=== PATIENT | male | born 1950 | race Caucasian/White ===

== ENCOUNTER 2017-04-17 12:10 | Emergency (ER) | payer OTHER ==
[~2017-04-17] VITALS: Ht 182.9 cm; Wt 96.1 kg
[~2017-04-17 12:10] MED LIST: LPR25 PO; WARF5TAB90 PO
[2017-04-17 12:22] VITALS: TEMP 36.8; Ht 182.9 cm; Wt 96.1 kg
--- NOTE | 2017-04-17 12:51 | EMERGENCY ROOM VISIT NOTE ---
History Report prepared by Jayde: Faustino Frank Under the Supervision of: Dr. Dwight Kaufman M.D. First contact with patient: 12:28 Chief Complaint: CARDIAC ASSESSMENT Stated Complaint: POSSIBLE AFIB History of Present Illness The patient is a 66 year old male who presents to the Emergency Room with complaints of intermittent atrial fibrillation beginning yesterday morning. The patient states he has a history of A-fib 4.5 years ago. He reports he was hospitalized, it resolved, and he has not had any signs of it since. The patient notes yesterday morning he had similar symptoms. He states he was outside hiking and doing yard work without symptoms. The patient reports his symptoms are present mainly when he sits down and is resting. He notes he can feel his heart skipping beats. The patient states he was evaluated by his PCP today and was sent here. He reports his EKG was normal. The patient notes he is not on blood thinners, but he does take aspirin. He denies chest pain, shortness of breath, lightheadedness, dizziness, abdominal pain, blood in his stool, black stool, trauma, leg pain, leg swelling, numbness, and weakness. The patient also denies any other chronic illness, including thyroid problems. Source of History: patient, spouse/significant other Onset: yesterday Position: other (global) Quality: other (a-fib) Timing: intermittent Modifying Factors (Worsening): rest Associated Symptoms: No chest pain, No SOB, No abdominal pain, No weakness, No numbness Note: Associated symptoms: feel his heart skipping Denies: lightheadedness, dizziness, blood in stool, black stool, trauma, leg pain, leg swelling Review of Systems See HPI for pertinent positives & negatives. A total of 10 systems reviewed and were otherwise negative. Past Medical & Surgical Medical Problems: (1) Cervical Laminectomy (2) Colonoscopy (3) Rigth Shoulder Arthroscopy (4) Tonsillectomy and adenoidectomy Old medical records were reviewed. Nurse's notes were reviewed and I agree with. Family History FH: heart disease Hypertension Stroke Social History Smoking Status: Former Smoker Marital Status: Current/Historical Medications Scheduled Aspirin (Aspirin Ec), 81 MG PO DAILY Multivitamin (Multivitamin), 1 TAB PO DAILY Miscellaneous Medications Fish Oil ([place]-3), 1 CAP PO Allergies Coded Allergies: Opioid Analgesics (Verified Adverse Reaction, Unknown, H/A, 04/17/17) Physical Exam Vital Signs Date Time Temp Pulse Resp B/P (MAP) Pulse Ox O2 Delivery O2 Flow Rate FiO2 04/17/17 14:01 119/90 04/17/17 13:36 57 17 95 04/17/17 13:31 115/78 04/17/17 13:15 52 13 95 04/17/17 13:15 95 Room Air 04/17/17 13:10 56 10 95 04/17/17 13:01 122/86 04/17/17 12:59 61 04/17/17 12:42 120/81 04/17/17 12:22 36.8 61 18 129/81 98 Room Air Physical Exam General: Non-ill appearing older male in no acute distress. HEENT: Normal cephalic atraumatic. Pupils are equal round and reactive to light. Extraocular movements are intact. Oropharynx is pink with moist mucous membranes. No swelling of the mouth lips or tongue. Neck: Supple with a midline trachea. No meningeal signs or stiffness, no JVD or bruits. No Stridor. Chest: Clear to auscultation bilaterally. No wheezes or rhonchi. No increased work of breathing. Heart: regular rate and rhythm. Abdomen: Soft nontender, nondistended without rebound guarding or rigidity. Extremities: No cyanosis clubbing or edema. No calf tenderness or assymetry Spine/Back. Non tender to palpation. No CVA tenderness Skin: Good turgor without rashes. Neurologic exam: Cranial nerves two through 12 are intact. Motor and sensation are intact and symmetrical throughout. Medical Decision & Procedures ER Provider Diagnostic Interpretation: X-ray results as stated below per interpretation by me and the radiologist: CHEST ONE VIEW PORTABLE CLINICAL HISTORY: CHEST PAIN dyspnea COMPARISON STUDY: 10/16/2012 FINDINGS: The bones soft tissues and hemidiaphragms are normal. The cardiomediastinal silhouette is normal. The lungs are clear. The pulmonary vasculature is normal. IMPRESSION: Negative chest. The above report was generated using voice recognition software. It may contain grammatical, syntax or spelling errors. Electronically signed by: Campos Card M.D. 04/17/2017 1:00 PM Dictated Date/Time: 04/17/2017 12:59 PM Laboratory Results 04/17/17 13:00 Red Blood Count 5.09, Mean Corpuscular Volume 84.9, Mean Corpuscular Hemoglobin 28.3, Mean Corpuscular Hemoglobin Concent 33.3, Mean Platelet Volume 10.5, Neutrophils (%) (Auto) 59.5, Lymphocytes (%) (Auto) 29.0, Monocytes (%) (Auto) 8.3, Eosinophils (%) (Auto) 2.6, Basophils (%) (Auto) 0.6, Neutrophils # (Auto) 3.00, Lymphocytes # (Auto) 1.46, Monocytes # (Auto) 0.42, Eosinophils # (Auto) 0.13, Basophils # (Auto) 0.03 04/17/17 13:00 Test 04/17/17 13:00 04/17/17 13:15 White Blood Count 5.04 K/uL (4.8-10.8) Red Blood Count 5.09 M/uL (4.7-6.1) Hemoglobin 14.4 g/dL (14.0-18.0) Hematocrit 43.2 % (42-52) Mean Corpuscular Volume 84.9 fL (80-100) Mean Corpuscular Hemoglobin 28.3 pg (25-34) Mean Corpuscular Hemoglobin Concent 33.3 g/dl (32-36) Platelet Count 223 K/uL (130-400) Mean Platelet Volume 10.5 fL (7.4-10.4) Neutrophils (%) (Auto) 59.5 % Lymphocytes (%) (Auto) 29.0 % Monocytes (%) (Auto) 8.3 % Eosinophils (%) (Auto) 2.6 % Basophils (%) (Auto) 0.6 % Neutrophils # (Auto) 3.00 K/uL (1.4-6.5) Lymphocytes # (Auto) 1.46 K/uL (1.2-3.4) Monocytes # (Auto) 0.42 K/uL (0.11-0.59) Eosinophils # (Auto) 0.13 K/uL (0-0.5) Basophils # (Auto) 0.03 K/uL (0-0.2) RDW Standard Deviation 39.7 fL (36.4-46.3) RDW Coefficient of Variation 12.8 % (11.5-14.5) Immature Granulocyte % (Auto) 0.0 % Immature Granulocyte # (Auto) 0.00 K/uL (0.00-0.02) Prothrombin Time 10.9 SECONDS (9.0-12.0) Prothromb Time International Ratio 1.0 (0.9-1.1) Activated Partial Thromboplast Time 25.0 SECONDS (21.0-31.0) Partial Thromboplastin Ratio 1.0 Anion Gap 5.0 mmol/L (3-11) Est Creatinine Clear Calc Drug Dose 92.4 ml/min Estimated GFR () 98.7 Estimated GFR (Non- 85.2 BUN/Creatinine Ratio 16.1 (10-20) Calcium Level 8.7 mg/dl (8.5-10.1) Total Bilirubin 0.5 mg/dl (0.2-1) Direct Bilirubin < 0.1 mg/dl (0-0.2) Aspartate Amino Transf (AST/SGOT) 13 U/L (15-37) Alanine Aminotransferase (ALT/SGPT) 27 U/L (12-78) Alkaline Phosphatase 64 U/L (45-117) Total Protein 7.6 gm/dl (6.4-8.2) Albumin 3.7 gm/dl (3.4-5.0) Lipase 128 U/L (73-393) Thyroid Stimulating Hormone (TSH) 0.997 uIu/ml (0.300-4.500) Bedside Troponin I < 0.030 ng/ml (0-0.045) Laboratory studies as stated above per my review. ECG Indication: palpitations Rate (beats per minute): 57 Rhythm: sinus bradycardia Findings: no acute ischemic change, no ectopy Comparison ECG Date: 10/18/12 Change: no significant change ED Course 1229: Past medical records reviewed. The patient was evaluated in room C07, and a complete history and physical examination were performed. 1354: I reviewed the monitor. The patient shows frequent PACs and is resting comfortably. 1419: Upon reevaluation, the patient is resting comfortably. I discussed the results and treatment plan with him. He verbalized agreement of the treatment plan. The patient was discharged home. Medical Decision Differentials include, but are not limited to; atrial fibrillation, arythmia, ectopy, cardiac disease, thyroid disease, electrolyte or metabolic abnormality. This patient comes in as described above. He was placed room C7. Here for treatment evaluation of palpitations. He has a history of A. fib about 4 years ago and was concerned that he could have A. fib. He did have palpitations yesterday. It occurred actually during rest and he feels fine at exertion. He feels good at present. He's had no chest pain or shortness of breath. He's had no fall or trauma. No blood or melena in his stool. IV access established and blood work was obtained. He was placed on quartz mounter and during his stay in the ER, he was in normal sinus with occasional PAC. It may be that he is feeling these. His EKG does not show any ectopy or ischemic changes has no acute electrolyte or metabolic abnormalities. He has no elevation his cardiac biomarker. He is not in congestive heart failure. He feels good and would like to go home his PACs may be causing the problem and he should minimize tobacco and alcohol and caffeine use. He should drink plenty as I can't rule out that he did have A. fib yesterday and recommend he follow up with his regular doctor and they could possibly put him on a Holter monitor as an outpatient. I encouraged him return to ER over the weekend if: he has recurrence of symptoms, chest pain, shortness of breath, worsening of symptoms, lightheadedness or dizziness, any new problems or concerns. Medication Reconcilliation Current Medication List: was personally reviewed by me Blood Pressure Screening Patient's blood pressure: Normal blood pressure Blood pressure disposition: Did not require urgent referral Impression Primary Impression: Palpitations Additional Impression: PAC (premature atrial contraction) Scribe Attestation The scribe's documentation has been prepared under my direction and personally reviewed by me in its entirety. I confirm that the note above accurately reflects all work, treatment, procedures, and medical decision making performed by me. Departure Information Dispostion Home / Self-Care Referrals Esme Lou M.D. (PCP) Forms IMPORTANT VISIT INFORMATION Patient Instructions [facility] Additional Instructions Rest. Drink plenty of fluids. Return if: Chest pain, increasing palpitations, lightheadedness or dizziness, shortness breath, any new problems or concerns Minimize your caffeine and alcohol use Follow-up with your doctor on Thursday for recheck or return to the ER over the weekend if symptoms worsen Problem Qualifiers
[2017-04-17] MEDS ORDERED: ASPI81TA28 PO (12:53)
[2017-04-17] MEDS ORDERED: MULT-506 PO (12:53)
[2017-04-17] MEDS ORDERED: OMEG10007 PO (12:53)
--- NOTE | 2017-04-17 13:01 | DIAGNOSTIC IMAGING REPORT ---
CHEST ONE VIEW PORTABLE CLINICAL HISTORY: CHEST PAIN dyspnea COMPARISON STUDY: 10/16/2012 FINDINGS: The bones soft tissues and hemidiaphragms are normal. The cardiomediastinal silhouette is normal. The lungs are clear. The pulmonary vasculature is normal. IMPRESSION: Negative chest. The above report was generated using voice recognition software. It may contain grammatical, syntax or spelling errors. Electronically signed by: Campos Card M.D. 04/17/2017 1:00 PM Dictated Date/Time: 04/17/2017 12:59 PM
[2017-04-17 13:15] VITALS: O2SAT 95
[2017-04-17 13:29] LABS: PROTHROMBIN TIME (PATIENT) 10.9 SECONDS (9.0-12.0)
[2017-04-17 13:33] LABS: BASO % 0.6 %; BASO ABS # 0.03 K/uL (0-0.2); COMPLETE YES; EOS % 2.6 %; HEMATOCRIT 43.2 % (42-52); LYMPH ABS # 1.46 K/uL (1.2-3.4); MEAN CELL VOLUME 84.9 fL (80-100); MEAN CORPUSCULAR HEMOGLOBIN 28.3 pg (25-34); MEAN CORPUSCULAR HGB CONC 33.3 g/dl (32-36); MEAN PLATELET VOLUME 10.5 fL (7.4-10.4); MONO % 8.3 %; NEUT % 59.5 %; PLATELET COUNT 223 K/uL (130-400); RED BLOOD COUNT 5.09 M/uL (4.7-6.1); WHITE BLOOD COUNT 5.04 K/uL (4.8-10.8)
[2017-04-17 13:44] LABS: BLOOD UREA NITROGEN 15 mg/dl (7-18); BUN/CREATININE RATIO 16.1 (10-20); CALCIUM 8.7 mg/dl (8.5-10.1); CARBON DIOXIDE 28 mmol/L (21-32); CHLORIDE 107 mmol/L (98-107); CREATININE 0.92 mg/dl (0.60-1.40); GLUCOSE 90 mg/dl (70-99); POTASSIUM 4.1 mmol/L (3.5-5.1); SODIUM 140 mmol/L (136-145)
[2017-04-17 13:55] LABS: ALKALINE PHOSPHATASE 64 U/L (45-117); ALT/SGPT 27 U/L (12-78); AST/SGOT 13 U/L (15-37); THYROID STIMULATING HORMONE 0.997 uIu/ml (0.300-4.500)
[2017-04-17 14:01] VITALS: BP 119/90
[2017-04-17 14:06] VITALS: PULSE 61; O2SAT 98
== END 2017-04-17 14:35 | disposition home or self-care (01) ==
LOC: C.EDB 12:11 → C.EDC 14:35
DX: R00.2 Palpitations (principal); I49.1 Atrial premature depolarization; Z79.82 Long term (current) use of aspirin; Z87.891 Personal history of nicotine dependence; Z82.49 Family history of ischemic heart disease and other diseases of the circulatory system; Z82.3 Family history of stroke

== ENCOUNTER → 2017-06-23 | Outpatient (CLI) | payer OTHER ==
[~2017-06-23] MED LIST changes: +ASPI81TA28 PO; -LPR25 PO; +MULT-506 PO; +OMEG10007 PO; -WARF5TAB90 PO
--- NOTE | 2017-06-23 12:50 | DIAGNOSTIC IMAGING REPORT ---
L ANKLE MIN 3 VIEWS ROUTINE CLINICAL HISTORY: SPRAIN OF UNSPECIFIED LIGAMENT COMPARISON: None FINDINGS: Alignment of the left ankle is anatomic. There is no acute fracture. There is marked anterolateral ankle soft tissue swelling. Talar dome is intact. Mild irregularity of the medial malleolus suggests old injury. IMPRESSION: 1. No acute fracture or dislocation of the left ankle. 2. Marked anterolateral ankle soft tissue swelling. Electronically signed by: Froy Landeros M.D. 06/23/2017 12:48 PM Dictated Date/Time: 06/23/2017 12:47 PM
== END | disposition home or self-care (01) ==
LOC: C.RAD1850 12:30
PROVIDERS: ATTEND Family Medicine
DX: S93.409A Sprain of unspecified ligament of unspecified ankle, initial encounter (principal); X58.XXXA Exposure to other specified factors, initial encounter